=== PATIENT | male | born 1995 | race African-American/Black ===

== ENCOUNTER 2017-10-16 11:51 | Emergency (ER) | payer OTHER ==
[~2017-10-16] VITALS: Ht 190.5 cm; Wt 90.9 kg
[2017-10-16 11:54] VITALS: BP 130/78; TEMP 97.9
[2017-10-16 12:31] LABS: COLLECTION METHOD CLEAN CATCH
[2017-10-16 12:40] LABS: MUCOUS Present /lpf; PH 6 (5-8); SQUAMOUS EPITHELIAL None Seen /hpf; URINE APPEARANCE Cloudy; URINE BACTERIA None Seen /hpf; URINE BILIRUBIN Negative (NEGATIVE); URINE BLOOD Negative (NEGATIVE); URINE COLOR Yellow; URINE GLUCOSE Negative (NEGATIVE); URINE KETONE Negative (NEGATIVE); URINE LEUKOCYTE ESTERASE Negative (NEGATIVE); URINE NITRATE Negative (NEGATIVE); URINE PROTEIN(semi-quant) Negative (NEGATIVE); URINE RBC 0-2 /hpf
[2017-10-16 13:09] VITALS: PULSE 60
== END 2017-10-16 13:09 | disposition home or self-care (01) ==
LOC: COL.ER 11:51
PROVIDERS: Nurse Practitioner
DX: Z20.2 Contact with and (suspected) exposure to infections with a predominantly sexual mode of transmission (principal)

== ENCOUNTER 2017-10-20 20:54 | Emergency (ER) | payer OTHER ==
[~2017-10-20] VITALS: Ht 190.5 cm; Wt 86.4 kg
[2017-10-20] MEDS ORDERED: VALTREX1 GM PO (21:23)
[2017-10-20 21:26] VITALS: BP 131/76; PULSE 62; TEMP 97.9
== END 2017-10-20 21:38 | disposition home or self-care (01) ==
LOC: COL.ER 20:54
DX: N48.5 Ulcer of penis (principal); Z20.2 Contact with and (suspected) exposure to infections with a predominantly sexual mode of transmission

== ENCOUNTER 2018-01-28 11:58 | Emergency (ER) | payer OTHER ==
[~2018-01-28] VITALS: Ht 190.5 cm; Wt 86.4 kg
[~2018-01-28 11:58] MED LIST: VALTREX1 GM PO
[2018-01-28 12:05] VITALS: BP 144/91; TEMP 97.9
[2018-01-28 13:08] LABS: COLLECTION METHOD CLEAN CATCH
[2018-01-28 13:14] LABS: PH 6 (5-8); SQUAMOUS EPITHELIAL None Seen /hpf; URINE APPEARANCE Clear; URINE BACTERIA None Seen /hpf; URINE BILIRUBIN Negative (NEGATIVE); URINE BLOOD Negative (NEGATIVE); URINE COLOR Yellow; URINE GLUCOSE Negative (NEGATIVE); URINE KETONE Negative (NEGATIVE); URINE LEUKOCYTE ESTERASE Negative (NEGATIVE); URINE NITRATE Negative (NEGATIVE); URINE PROTEIN(semi-quant) Negative (NEGATIVE); URINE RBC 0-2 /hpf
[2018-01-28 13:48] VITALS: PULSE 60
== END 2018-01-28 13:49 | disposition home or self-care (01) ==
LOC: COL.ER 11:58
PROVIDERS: Nurse Practitioner
DX: B34.9 Viral infection, unspecified (principal)

== ENCOUNTER 2018-01-31 17:40 | Emergency (ER) | payer OTHER ==
[~2018-01-31] VITALS: Ht 190.5 cm; Wt 86.4 kg
[2018-01-31 17:42] VITALS: BP 131/66; TEMP 97.8
[2018-01-31 19:04] VITALS: PULSE 56
[2018-01-31 19:16] LABS: HIV 1/2 Antibodies Non-Reactive; HIV-1p24 Antigen Non-Reactive
== END 2018-01-31 19:06 | disposition home or self-care (01) ==
LOC: COL.ER 17:40
PROVIDERS: Physician Assistant
DX: N50.811 Right testicular pain (principal); N50.812 Left testicular pain

== ENCOUNTER 2018-04-07 13:32 | Emergency (ER) | payer OTHER ==
[~2018-04-07] VITALS: Ht 188 cm; Wt 90.9 kg
[2018-04-07 13:35] VITALS: BP 116/70; TEMP 97.9
[2018-04-07 13:49] LABS: COLLECTION METHOD CLEAN CATCH
[2018-04-07 14:12] LABS: AMORPHOUS CRYSTAL Present /uL; MUCOUS Present /lpf; PH 8 (5-8); SQUAMOUS EPITHELIAL None Seen /hpf; URINE APPEARANCE Turbid; URINE BACTERIA None Seen /hpf; URINE BILIRUBIN Negative (NEGATIVE); URINE BLOOD Negative (NEGATIVE); URINE COLOR Yellow; URINE GLUCOSE Negative (NEGATIVE); URINE KETONE Negative (NEGATIVE); URINE LEUKOCYTE ESTERASE 2+ (NEGATIVE); URINE NITRATE Negative (NEGATIVE); URINE PROTEIN(semi-quant) 1+ (NEGATIVE); URINE RBC None Seen /hpf; URINE UROBILINOGEN Negative (NEGATIVE)
[2018-04-07] MEDS ORDERED: BACTRIM DS 8001 TAB PO (14:18)
[2018-04-07 14:45] VITALS: PULSE 63
== END 2018-04-07 14:48 | disposition home or self-care (01) ==
LOC: COL.ER 13:32
PROVIDERS: Nurse Practitioner Primary Care
DX: N30.90 Cystitis, unspecified without hematuria (principal)
CPT/HCPCS: J0696

== ENCOUNTER 2018-06-02 18:39 | Emergency (ER) | payer OTHER ==
[~2018-06-02] VITALS: Ht 190.5 cm; Wt 90.9 kg
[~2018-06-02 18:39] MED LIST changes: +BACTRIM DS 8001 TAB PO
[2018-06-02 18:54] VITALS: BP 136/80; TEMP 98.2
[2018-06-02] MEDS ORDERED: CIPRODEX OT (19:48)
[2018-06-02 20:10] VITALS: PULSE 59
== END 2018-06-02 20:10 | disposition home or self-care (01) ==
LOC: COL.ER 18:39
DX: H60.92 Unspecified otitis externa, left ear (principal)

== ENCOUNTER 2019-08-28 16:26 | Emergency (ER) | payer SELFPAY ==
[~2019-08-28] VITALS: Ht 190.5 cm; Wt 93.2 kg
[~2019-08-28 16:26] MED LIST changes: +CIPRODEX OT
[2019-08-28 16:29] VITALS: BP 135/72; PULSE 74; TEMP 98.1
[2019-08-28] MEDS ORDERED: PROZAC 10MG10 MG PO (16:32)
[2019-08-28] MEDS ORDERED: AMOXICILLIN 50500 MG PO (16:58)
== END 2019-08-28 17:13 | disposition home or self-care (01) ==
LOC: COL.ER 16:26
DX: H65.92 Unspecified nonsuppurative otitis media, left ear (principal)

== ENCOUNTER 2020-08-18 01:10 | Emergency (ER) | payer OTHER ==
[~2020-08-18] VITALS: Ht 190.5 cm; Wt 102.3 kg
[~2020-08-18 01:10] MED LIST changes: +AMOXICILLIN 50500 MG PO; +PROZAC 10MG10 MG PO
[2020-08-18 01:57] VITALS: TEMP 97.9
[2020-08-18] MEDS ORDERED: CLEOCIN HCL300 MG PO (02:19)
[2020-08-18] MEDS ORDERED: TRIAMCINOLONE A15 GM TP (02:19)
[2020-08-18 02:25] VITALS: BP 123/87; PULSE 84
== END 2020-08-18 02:25 | disposition home or self-care (01) ==
LOC: COL.ER 01:10
DX: R21 Rash and other nonspecific skin eruption (principal)

== ENCOUNTER 2020-09-09 16:50 | Emergency (ER) | payer OTHER ==
[~2020-09-09] VITALS: Ht 190.5 cm; Wt 98.6 kg
[~2020-09-09 16:50] MED LIST changes: +CLEOCIN HCL300 MG PO; +TRIAMCINOLONE A15 GM TP
[2020-09-09 17:00] VITALS: TEMP 98.3
[2020-09-09 17:16] VITALS: BP 136/72; PULSE 76
== END 2020-09-09 17:17 | disposition home or self-care (01) ==
LOC: COL.ER 16:50
DX: Z11.3 Encounter for screening for infections with a predominantly sexual mode of transmission (principal)